=== PATIENT | male | born 1985 | race African-American/Black ===

== ENCOUNTER 2020-04-16 11:36 | Inpatient (IN) | payer MEDICAID ==
[~2020-04-16] VITALS: Ht 182.9 cm; Wt 78.5 kg
--- NOTE | 2020-04-16 11:50 | NUR ---
ED Nurse Note: Pt ambulated to ed c/o blood in stool with diarrheaa. per triage nurse pt has fever of 100.6; rechecked oral temp at bedside 98.8.
[2020-04-16] MEDS ORDERED: Acetaminophen 500mg (ES) tab ORAL ONE (12:00)
[2020-04-16 12:08] VITALS: BP 127/98
--- NOTE | 2020-04-16 12:19 | NUR ---
ED Nurse Note: xray at bedside
--- NOTE | 2020-04-16 12:31 | NUR ---
ED Nurse Note: xray completed.
[2020-04-16 12:43] LABS: BASOPHILS % (AUTO) 1.9 % (0.0-2.0); EOSINOPHILS % (AUTO) 2.6 % (0.0-3.0); HEMATOCRIT 30.7 % (42.0-52.0); LYMPHOCYTES % (AUTO) 26.4 % (20.0-45.0); MEAN CORPUSCULAR VOLUME 80 FL (80-99); MONOCYTES % (AUTO) 5.6 % (1.0-10.0); NEUTROPHILS % (AUTO) 63.5 % (45.0-75.0); PLATELET COUNT 252 K/UL (150-450); RED BLOOD COUNT 3.81 M/UL (4.70-6.10); RED CELL DISTRIBUTION WIDTH 12.7 % (11.6-14.8); WHITE BLOOD COUNT 6.5 K/UL (4.8-10.8)
[2020-04-16 12:59] LABS: ANION GAP 3 mmol/L (5-15); BLOOD UREA NITROGEN 6 mg/dL (7-18); CALCIUM 8.2 MG/DL (8.5-10.1); CARBON DIOXIDE 31 MMOL/L (21-32); CHLORIDE 100 MMOL/L (98-107); CREATININE 1.2 MG/DL (0.55-1.30); POTASSIUM 3.8 MMOL/L (3.5-5.1); SODIUM 133 MMOL/L (136-145)
[2020-04-16 13:12] LABS: ALBUMIN 2.3 G/DL (3.4-5.0); ALBUMIN/GLOBULIN RATIO 0.3 (1.0-2.7); ALKALINE PHOSPHATASE 84 U/L (46-116); ASPARTATE AMINO TRANSFERASE 20 U/L (15-37); BILIRUBIN,TOTAL 0.2 MG/DL (0.2-1.0); CKMB < 0.5 NG/ML (0.0-3.6); CREATINE KINASE 85 U/L (26-308); PHOSPHORUS 5.4 MG/DL (2.5-4.9)
--- NOTE | 2020-04-16 13:27 | Emergency Room Report ---
History of Present Illness General Chief Complaint: Fever Source: Patient Present Illness HPI 35-year-old male with a history of HIV noncompliant with medications here with fever and diarrhea and general malaise. Patient says that he is HIV positive but has not taken any antiretrovirals in over a year. Says he does not recall the last time he had a CD4 count or his viral loads checked. Says he has been having bloody diarrhea over the past several days to weeks. Has felt very lightheaded and has had multiple episodes of presyncope. Denies chills, chest pain, palpitation, cough, shortness of breath, back pain, abdominal pain, nausea, vomiting, dysuria, penile discharge. 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 COVID-19 Screening: Negative COVID-19 COVID-19 Testing Source: nasal Nursing Documentation-[facility] Past Medical History: No History, Except For Review of Systems All Other Systems: negative except mentioned in HPI Physical Exam Vital Signs Date Time Temp Pulse Resp B/P (MAP) Pulse Ox O2 Delivery O2 Flow Rate FiO2 04/16/20 11:40 100.8 133 20 158/101 (120) 95 Room Air Sp02 EP Interpretation: reviewed, normal General Appearance: no apparent distress, alert, GCS 15, non-toxic, other - Appears chronically ill, disheveled Head: normocephalic, atraumatic Eyes: bilateral eye normal inspection, bilateral eye PERRL ENT: hearing grossly normal, normal pharynx, no angioedema, normal voice Neck: full range of motion, supple/symm/no masses Respiratory: chest non-tender, lungs clear, normal breath sounds, speaking full sentences Cardiovascular #1: regular rate, rhythm, no edema Cardiovascular #2: 2+ carotid (R), 2+ carotid (L), 2+ radial (R), 2+ radial (L), 2+ dorsalis pedis (R), 2+ dorsalis pedis (L) Gastrointestinal: normal bowel sounds, non tender, soft, non-distended, no guarding, no rebound Rectal: deferred Genitourinary: normal inspection, no CVA tenderness Musculoskeletal: back normal, normal range of motion, gait/station normal, non- tender Neurologic: alert, motor strength/tone normal, oriented x3, sensory intact, responsive, speech normal Psychiatric: judgement/insight normal, memory normal, mood/affect normal, no suicidal/homicidal ideation Lymphatic: no adenopathy Medical Decision Making Diagnostic Impression: Primary Impression: Fever of unknown origin Additional Impressions: HIV (human immunodeficiency virus infection) Noncompliance with medications Diarrhea Abdominal pain Sepsis ER Course Total critical care time: Approximately 45 minutes Due to a high probability of clinically significant, life threatening deterioration, the patient required the highest level of preparedness to intervene emergently and I personally spent this critical care time directly and personally managing the patient. This critical care time included obtaining a history, examining the patient, pulse oximetry, ordering and reviewing studies, ordering treatments, evaluating response to treatment and updating management plan as needed, frequent reassessment and discussion with other providers as well as arranging for ultimate disposition. This critical to care time was performed to assess and manage the high probability of life-threatening deterioration that could result in multiorgan failure. This critical care time is separate from the separately billable procedures and treating other patients. EKG: NSR, no ischemia, intervals WNL. No ectopy Rhythm strip: patient monitored for arrhythmias - no malignant dysrhythmias, runs of PVCs, nor pauses noted 35-year-old male with history of HIV noncompliant with medications and unknown CD4 count or viral load count here with several days of diarrhea and abdominal pain. Patient said that he had several bloody bowel movements over the past several days. On arrival to the emergency department the patient had a fever of 100.4 F and was tachycardic at 120 bpm. He was given Tylenol and 30 cc/kg fluid bolus with good resolution of his abnormal vital signs. Patient had mild pancytopenia on CBC. CMP largely unremarkable. Lactic acid normal. The patient was given a dose of Zosyn in the emergency department for suspected intra-abdominal infection. C. difficile toxin screen will be sent upon patient providing stool sample. Patient will undergo CT abdomen pelvis and chest x-ray, both of which are currently pending. Patient was signed out to the oncoming physician. He will likely be admitted to telemetry upon completion of the studies. Last Vital Signs Date Time Temp Pulse Resp B/P (MAP) Pulse Ox O2 Delivery O2 Flow Rate FiO2 04/16/20 12:08 113 19 Room Air 04/16/20 12:08 100.8 127/98 98 Referrals: NOT CHOSEN IPA/,REFERRING (PCP) Robert eKn M.D. Apr 16, 2020 13:27
[2020-04-16 13:38] LABS: ALANINE AMINOTRANSFERASE 11 U/L (12-78)
[2020-04-16] MEDS ORDERED: Piperacillin/Tazobactam 3.375 GM in NS 110 ML IVPB ONE (14:00)
[2020-04-16 14:15] VITALS: BP 151/83
[2020-04-16] MEDS ORDERED: Omnipaque-300 100ml vial INJ PRN (14:15)
--- NOTE | 2020-04-16 14:42 | NUR ---
ED Nurse Note: Pt taken to CT
--- NOTE | 2020-04-16 15:16 | NUR ---
ED Nurse Note: Pt returned from CT
[2020-04-16 16:15] VITALS: BP 170/111
--- NOTE | 2020-04-16 16:42 | NUR ---
ED Nurse Note: telephone report given to ольга padilla
--- NOTE | 2020-04-16 16:44 | Diagnostic Imaging Report ---
Clinical Indication: Abdominal pain, blood in stool for 7 days Technique: No oral contrast utilized, per emergency room physician request IV administration nonionic contrast. Venous phase spiral acquisition obtained through the abdomen and pelvis. Multiplanar reconstructions were generated. Total dose length product . 71 mGycm. CTDIvol(s) 5 mGy. Dose reduction achieved using automated exposure control Comparison: none Findings: The lack of enteric contrast limits assessment of the GI tract. There is questionably mild wall thickening of the distal transverse and proximal descending colon, although this could be artifact of lack of distention. The appendix is only equivocally visualized; no definite findings to suggest acute appendicitis are demonstrated, however. No small bowel distention. No free or loculated intraperitoneal gas or fluid. There is an eggshell calcification in the right lower quadrant mesentery. The distal esophagus, stomach, duodenum are unremarkable. The liver demonstrates a subcentimeter low-attenuation lesion in segment 7 which is too small to characterize. Another is seen in segment 2 and a third lesion in segment 7 near the dome. The gallbladder is nondistended, no definite stones. No biliary ductal dilatation. The pancreas, spleen adrenals, right kidney are unremarkable. The left kidney demonstrates a 6 mm low-attenuation lesion which is too small to characterize. No retroperitoneal or mesenteric mass or adenopathy. No pelvic mass or adenopathy. The included lung bases demonstrate consolidative opacities within the right middle lobe and left lower lobe. Groundglass opacity in the right costophrenic sulcus could represent infiltrate, versus dependent atelectatic changes. Impression: Limited assessment of the GI tract, due to lack of enteric contrast administration Mild apparent wall thickening of the distal transverse and proximal descending colon, may be artifact of lack of distention versus but if real could indicate wall thickening secondary to colitis Bilateral basilar pulmonary parenchymal infiltrates, likely pneumonia Right lower quadrant eggshell calcification, probably postinflammatory Incidental findings as noted, including probable hepatic and renal cysts The CT scanner at [facility] is accredited by the [employer] and the scans are performed using protocols designed to limit radiation exposure to as low as reasonably achievable to attain images of sufficient resolution adequate for diagnostic evaluation.
[2020-04-16 17:08] LABS: APPEARANCE,URINE CLEAR; BILIRUBIN, URINE NEGATIVE (NEGATIVE); GLUCOSE, URINE (UA) NEGATIVE (NEGATIVE); KETONES,URINE NEGATIVE (NEGATIVE); LEUKOCYTE ESTERASE ,URINE NEGATIVE (NEGATIVE); NITRITE,URINE NEGATIVE (NEGATIVE); PH,URINE 6 (4.5-8.0); PROTEIN,URINE 2+ (NEGATIVE); UROBILINOGEN,URINE NORMAL MG/DL (0.0-1.0)
[2020-04-16 17:10] LABS: COLOR,URINE YELLOW
--- NOTE | 2020-04-16 17:15 | NUR ---
TRANSFER TO FLOOR: Patient transferred to tele as ordered, per ermd. Report given to ольга Bautista. Belongings given to pt.
[2020-04-16 17:30] VITALS: BP 152/97
--- NOTE | 2020-04-16 18:50 | NUR ---
NURSE NOTES: PT ADMitted to unit in stable condition, no complains of pain. pt claims he had 2 weeks worth of bloody stools, non happened during my shift. Pt vital signs stable, in room air. Bed in lowest position, call light within reach. teletypesetter monitor placed on pt when he came to unit, no signs of cardiac or respiratory distress at this time. pt boyfriend will be bringing his HIV meds tonight. doctor link is aware.
--- NOTE | 2020-04-16 19:15 | Diagnostic Imaging Report ---
Indication: Reason For Exam: COUGH Technique: One view of the chest Comparison: none Findings: Lungs and pleural spaces are clear. Heart size is upper limits normal. Impression: No acute process
--- NOTE | 2020-04-16 19:37 | NUR ---
NURSE HAND-OFF REPORT: Important Events on Shift:still waiting for HIV meds boyfriend will bring them Patient Status: full Diet: regular Pending Orders: stool sample pending Pending Results/Labs: Pending MD notification: Latest Vital Signs: Temperature 98.8 , Pulse 81 , B/P 152 /97 , Respiratory Rate 20 , O2 SAT 98 , Room Air, O2 Flow Rate . Vital Sign Comment: EKG Rhythm: Sinus Rhythm Rhythm change?: MD Notified?: - MD Response: Latest [place] Fall Score: 35 Fall Risk: Medium Risk Safety Measures: Call light Within Reach, Bed Alarm Zone 2, Side Rails Side Rails x2, Bed position Low and Locked. Fall Precautions: Yellow Socks y Yellow Gown y Patient Fall Education y Report given to Jim/RN .
--- NOTE | 2020-04-16 19:46 | NUR ---
NURSE NOTES: Report received from Lily LANGFORD. Patient is noted to be awake and alert x 4. Patient is noted to be on room air with no complaints of chest pain or shortness of breath at this time. Was endorsed that patient is HIV positive and that family member will be bringing in medication from home. Was endorsed that patient was febrile upon admission, but is noted to currently be afebrile. It is noted that a stool culture is needed to be obtained. Elijah LANGFORD placed collection hat in toilet and made patient aware. Patient verbalized understanding. Patient is noted to have left AC 18 ramirez IV access. Patient has no other complaints at this time, patient currently eating dinner. Bed is locked and in lowest position. Call light in reach. Will continue to follow plan of care.
[2020-04-16 20:00] VITALS: BP 141/97
[2020-04-16] MEDS ORDERED: cefTRIAXone 1 GM in D5W 55 ML IVPB SCH (20:00)
--- NOTE | 2020-04-16 22:06 | NUR ---
NURSE NOTES: Doctor Muller paged regarding rhythm strip showing SR w/ 1st degree HB. No previous rhythm strip to compare to. Admission EKG shows SR. Patient is awake and alert x 4 and asymptomatic. Doctor Muller aware, informed Elijah LANGFORD to inform Doctor Rudd. Elijah LANGFORD paged Doctor Rudd, no answer, awaiting call back.
[2020-04-16] MEDS: metroNIDAZOLE 500mg tab ORAL SCH (22:10)
--- NOTE | 2020-04-16 22:23 | NUR ---
NURSE NOTES: Doctor Tobin is aware of 1st degree HB. No new orders given.
[2020-04-17] VITALS: BP 138/89
[2020-04-17 04:00] VITALS: BP 149/96
--- NOTE | 2020-04-17 06:14 | NUR ---
NURSE NOTES: Note that a wrong order set was placed for this patient. [employer] called. All error orders canceled.
[2020-04-17] MEDS ORDERED: NovoLOG Insulin Flexpen SUBQ SCH (06:30)
[2020-04-17] MEDS: metroNIDAZOLE 500mg tab ORAL SCH ×2 (06:51→14:37)
--- NOTE | 2020-04-17 07:30 | NUR ---
NURSE HAND-OFF REPORT: Important Events on Shift: patient slept throughout shift. Began antibiotics. Stool sample obtained. Patient Status: full code Diet: regular Pending Orders: none Pending Results/Labs:stool culture results Pending MD notification:none Latest Vital Signs: Temperature 98.0 , Pulse 94 , B/P 149 /96 , Respiratory Rate 20 , O2 SAT 96 , Room Air, O2 Flow Rate . Vital Sign Comment: within normal limits. EKG Rhythm: SR, w/ 1st degree HB Rhythm change?: N Notified?: Gt Johnson MD Response: no new orders. Latest [place]ama Fall Score: 35 Fall Risk: Medium Risk Safety Measures: Call light Within Reach, Bed Alarm Zone 2, Side Rails Side Rails x2, Bed position Low and Locked. Fall Precautions: Yellow Socks Yellow Gown Patient Fall Education Report given to Lily LANGFORD.
[2020-04-17 07:35] LABS: BASOPHILS % (AUTO) 1.2 % (0.0-2.0); EOSINOPHILS % (AUTO) 2.3 % (0.0-3.0); HEMATOCRIT 31.1 % (42.0-52.0); HEMOGLOBIN 9.8 G/DL (14.2-18.0); LYMPHOCYTES % (AUTO) 18.4 % (20.0-45.0); MEAN CORPUSCULAR VOLUME 81 FL (80-99); MONOCYTES % (AUTO) 6.5 % (1.0-10.0); NEUTROPHILS % (AUTO) 71.7 % (45.0-75.0); PLATELET COUNT 245 K/UL (150-450); RED BLOOD COUNT 3.84 M/UL (4.70-6.10); RED CELL DISTRIBUTION WIDTH 12.7 % (11.6-14.8); WHITE BLOOD COUNT 6.2 K/UL (4.8-10.8)
[2020-04-17 07:51] LABS: ALANINE AMINOTRANSFERASE 10 U/L (12-78); ALBUMIN 2.2 G/DL (3.4-5.0); ALBUMIN/GLOBULIN RATIO 0.3 (1.0-2.7); ALKALINE PHOSPHATASE 82 U/L (46-116); ANION GAP 4 mmol/L (5-15); ASPARTATE AMINO TRANSFERASE 21 U/L (15-37); BILIRUBIN,TOTAL 0.2 MG/DL (0.2-1.0); BLOOD UREA NITROGEN 5 mg/dL (7-18); CALCIUM 8.3 MG/DL (8.5-10.1); CARBON DIOXIDE 29 MMOL/L (21-32); CHLORIDE 101 MMOL/L (98-107); POTASSIUM 4.1 MMOL/L (3.5-5.1); SODIUM 134 MMOL/L (136-145)
[2020-04-17 08:00] VITALS: BP 155/97
--- NOTE | 2020-04-17 08:22 | Cardiology Progress Note ---
Assessment/Plan Assessment/Plan The patient is seen and examined, full consult note is dictated. Objective Last 24 Hour Vital Signs Date Time Temp Pulse Resp B/P (MAP) Pulse Ox O2 Delivery O2 Flow Rate FiO2 04/17/20 04:00 98.0 98 20 149/96 (113) 96 04/17/20 04:00 94 04/17/20 00:00 98.1 82 20 138/89 (105) 98 04/17/20 00:00 97 04/16/20 21:00 Room Air 04/16/20 20:00 79 04/16/20 20:00 98.4 83 20 141/97 (112) 99 04/16/20 18:21 Room Air 04/16/20 17:30 98.8 81 20 152/97 (115) 98 04/16/20 17:21 98.4 81 17 163/100 100 Room Air 04/16/20 16:15 98.7 86 16 170/111 99 Room Air 04/16/20 14:15 98.8 84 15 151/83 94 Room Air 04/16/20 12:08 113 19 Room Air 04/16/20 12:08 100.8 113 19 127/98 98 Room Air 04/16/20 11:40 100.8 133 20 158/101 (120) 95 Room Air Intake and Output 04/16/20 04/17/20 19:00 07:00 Intake Total 415 ml Output Total 0 ml Balance 0 ml 415 ml Intake Oral 360 ml IV Total 55 ml Output Urine Total 0 ml # Voids 2 # Bowel Movements 3 Laboratory Tests Test 04/16/20 11:57 04/16/20 16:38 04/17/20 06:30 White Blood Count 6.5 K/UL (4.8-10.8) Pending Red Blood Count 3.81 M/UL (4.70-6.10) L 3.84 M/UL (4.70-6.10) L Hemoglobin 10.0 G/DL (14.2-18.0) L 9.8 G/DL (14.2-18.0) L Hematocrit 30.7 % (42.0-52.0) L 31.1 % (42.0-52.0) L Mean Corpuscular Volume 80 FL (80-99) 81 FL (80-99) Mean Corpuscular Hemoglobin 26.1 PG (27.0-31.0) L 25.4 PG (27.0-31.0) L Mean Corpuscular Hemoglobin Concent 32.5 G/DL (32.0-36.0) 31.4 G/DL (32.0-36.0) L Red Cell Distribution Width 12.7 % (11.6-14.8) 12.7 % (11.6-14.8) Platelet Count 252 K/UL (150-450) 245 K/UL (150-450) Mean Platelet Volume 6.6 FL (6.5-10.1) 6.7 FL (6.5-10.1) Neutrophils (%) (Auto) 63.5 % (45.0-75.0) 71.7 % (45.0-75.0) Lymphocytes (%) (Auto) 26.4 % (20.0-45.0) 18.4 % (20.0-45.0) L Monocytes (%) (Auto) 5.6 % (1.0-10.0) 6.5 % (1.0-10.0) Eosinophils (%) (Auto) 2.6 % (0.0-3.0) 2.3 % (0.0-3.0) Basophils (%) (Auto) 1.9 % (0.0-2.0) 1.2 % (0.0-2.0) Prothrombin Time 11.4 SEC (9.30-11.50) Prothromb Time International Ratio 1.0 (0.9-1.1) Sodium Level 133 MMOL/L (136-145) L 134 MMOL/L (136-145) L Potassium Level 3.8 MMOL/L (3.5-5.1) 4.1 MMOL/L (3.5-5.1) Chloride Level 100 MMOL/L (98-107) 101 MMOL/L (98-107) Carbon Dioxide Level 31 MMOL/L (21-32) 29 MMOL/L (21-32) Anion Gap 3 mmol/L (5-15) L 4 mmol/L (5-15) L Blood Urea Nitrogen 6 mg/dL (7-18) L 5 mg/dL (7-18) L Creatinine 1.2 MG/DL (0.55-1.30) 1.0 MG/DL (0.55-1.30) Estimat Glomerular Filtration Rate > 60 mL/min (>60) > 60 mL/min (>60) Glucose Level 90 MG/DL (74-106) 78 MG/DL (74-106) Lactic Acid Level 0.90 mmol/L (0.4-2.0) Calcium Level 8.2 MG/DL (8.5-10.1) L 8.3 MG/DL (8.5-10.1) L Phosphorus Level 5.4 MG/DL (2.5-4.9) H Magnesium Level 1.8 MG/DL (1.8-2.4) Total Bilirubin 0.2 MG/DL (0.2-1.0) 0.2 MG/DL (0.2-1.0) Aspartate Amino Transf (AST/SGOT) 20 U/L (15-37) 21 U/L (15-37) Alanine Aminotransferase (ALT/SGPT) 11 U/L (12-78) L 10 U/L (12-78) L Alkaline Phosphatase 84 U/L (46-116) 82 U/L (46-116) Total Creatine Kinase 85 U/L (26-308) Creatine Kinase MB < 0.5 NG/ML (0.0-3.6) Creatine Kinase MB Relative Index 0.5 Troponin I 0.015 ng/mL (0.000-0.056) Total Protein 9.3 G/DL (6.4-8.2) H 10.0 G/DL (6.4-8.2) H Albumin 2.3 G/DL (3.4-5.0) L 2.2 G/DL (3.4-5.0) L Globulin 7.0 g/dL 7.8 g/dL Albumin/Globulin Ratio 0.3 (1.0-2.7) L 0.3 (1.0-2.7) L Urine Color Yellow Urine Appearance Clear Urine pH 6 (4.5-8.0) Urine Specific [place] 1.020 (1.005-1.035) Urine Protein 2+ (NEGATIVE) H Urine Glucose (UA) Negative (NEGATIVE) Urine Ketones Negative (NEGATIVE) Urine Blood 2+ (NEGATIVE) H Urine Nitrite Negative (NEGATIVE) Urine Bilirubin Negative (NEGATIVE) Urine Urobilinogen Normal MG/DL (0.0-1.0) Urine Leukocyte Esterase Negative (NEGATIVE) Urine RBC 5-10 /HPF (0 - 0) H Urine WBC 0-2 /HPF (0 - 0) Urine Squamous Epithelial Cells Occasional /LPF Urine Bacteria Occasional /HPF (NONE) Lymphocytes Pending Percent CD3 Cells Pending Absolute CD3 Count Pending Percent CD4 Cells Pending Absolute CD4 Count Pending T-Lymphocyte CD4/CD8 Ratio Pending Percent CD8 Cells Pending Absolute CD8 Count Pending Microbiology Date/Time Source Procedure Growth Status 04/16/20 11:57 Nasopharynx SARS-CoV-2 RdRp Gene Assay - Final Complete Joselo Rudd MD Apr 17, 2020 08:22
--- NOTE | 2020-04-17 08:39 | NUR ---
NURSE NOTES: pt in bed having breakfast. AOx4 . pt on ekg monitor tech does not have any chest pain or respiratory distress at this time. Bed locked and in lowest position, call light within reach. Will continue to monitor pt.
[2020-04-17] MEDS: dilTIAZem HCl 30mg tab ORAL SCH ×2 (09:52→14:42)
--- NOTE | 2020-04-17 10:51 | NUR ---
CASE MANAGEMENT:REVIEW 35 [address]RE[address] TO ER CC: BLOOD IN STOOL. NOSE ABSCESS. DIARRHEA PMH: HIV SI: SEPSIS 100.7 133 20 158/101 94% ON RA NA-133 IS: 2L NS BOLUS IV ZOSYN TYLENOL PO CHEST XRAY C-DIFF : TO TELEMETRY
--- NOTE | 2020-04-17 11:00 | Consultation ---
DATE OF CONSULTATION: 04/17/2020 CARDIOLOGY CONSULTATION CONSULTING PHYSICIAN: Joselo Rudd MD. REFERRING PHYSICIAN: Hermelindo Muller MD. REASON FOR CONSULTATION: Management of tachycardia. HISTORY OF PRESENT ILLNESS: The patient is a very unfortunate 35-year-old gentleman with a history of HIV disease, noncompliant with medication, who presented to the hospital with fever, diarrhea, and general malaise. Apparently, the patient has not taken his antiviral medication for just about a year and his CD4 count has not been checked either. The patient has been having bloody diarrhea in the past few days to week complaining of lightheadedness and has had multiple near faint events. At the time of arrival to this hospital, he denied any chest pain or shortness of breath. Vital signs revealed blood pressure 158/101 mmHg and temperature of 100.8 degrees Fahrenheit. His heart rate was 133. He was admitted to telemetry for further evaluation and management of GI symptoms. Cardiology consultation was made for hemodynamic management including treatment of tachycardia and hypertension crisis. PAST MEDICAL HISTORY: HIV disease. ALLERGIES: No known drug allergies. SURGICAL HISTORY: None. FAMILY HISTORY: No premature coronary artery disease in first-degree relatives. REVIEW OF SYSTEMS: A 12-system review done essentially negative except what was mentioned in the history of present illness. LIST OF MEDICATION: The patient does not take any medication currently. PHYSICAL EXAMINATION: VITAL SIGNS: Blood pressure was 158/101, pulse of 133, respirations of 20, temperature 100.8 degrees Fahrenheit, O2 saturation 95% on room air. GENERAL: The patient is a very unfortunate 35-year-old gentleman, chronically ill, disheveled. HEENT: Atraumatic and normocephalic. Anicteric. Pupils are equal, round, and reactive to light and accommodation. Extraocular muscles are intact. NECK: JVP less than 5 cm. No carotid bruit. Carotid upstroke is 2+ bilaterally. CARDIOVASCULAR: Normal S1, S2. Regular rate and rhythm. Tachycardic. No murmurs, gallops, or rubs. PMI is at fourth intercostal space and midclavicular line. LUNGS: Clear to auscultation bilaterally. ABDOMEN: Soft, nontender, nondistended. No hepatosplenomegaly. Positive bowel sounds. EXTREMITIES: No evidence of edema, clubbing, or cyanosis. DIAGNOSTIC DATA: Chest x-ray in the emergency department showed no acute cardiopulmonary disease. A 12-lead electrocardiogram showed sinus tachycardia, rate of 97 with LVH pattern and lateral wall T-wave inversions suggestive of repolarization abnormality versus ischemia. LABORATORY FINDINGS: WBC 6.5, hemoglobin 10.0, hematocrit 30.7, platelet count is 252. Sodium was 133, potassium 3.8, BUN 6, creatinine 1.2, chloride 100, bicarbonate 31, glucose 90, calcium is 8.2. Troponin I level is 0.015. INR was 1.0. ASSESSMENT/PLAN: The patient is a very unfortunate 35-year-old gentleman, who was seen in Cardiology consultation. 1. Sinus tachycardia in this patient is most likely due to underlying sepsis/infection, possibly gastroenteritis. Infectious Disease consultation. IV antibiotics and aggressive hydration with normal saline at 100 mL per hour. We will check brain natriuretic peptide in this patient. Chest x-ray does not show any acute cardiopulmonary disease. We will obtain 2D echocardiography for assessment of LV systolic function, also diastolic data for management of hemodynamics. 2. HIV disease, noncompliant with medications. I would like to thank Dr. Muller for allowing me to participate in the care of this patient. Joselo Rudd M.D. DR: CRIS JOB#: [id number] CC:
[2020-04-17 12:00] VITALS: BP 165/100
--- NOTE | 2020-04-17 15:24 | NUR ---
ELECTRONIC BENCH TECHNICIAN NOTE Pt presents as A&O 4x. Pt has been homeless for two years. Pt is single, never and has no children. Pt receives GR and food stamp. PT reports he does have some income available for this month. Emergency contact provided as his brother, Abhay Lyles [phone]. Pt reports using THC and smoking cigarette. PT denies ETOH/other substance abuse. PT declined counseling/tx intervention on substance abuse. SW offered a placement assistance but pt refused. Pt plans to go to his friend's house upon DC. Pt SW encouraged pt to reconsider placement assistance but pt declined. Pt did not provide the exact address/location he will be going. Pt reports he will arrange his own once he is discharged. SW explained negative ramification of unlicensed facilities. SW encouraged pt to verbalize his needs/concerns or any dialysis social worker assistance while IP. Pt verbalized understanding. Pt reports having appropriate clothing. KELLY provided the community resource packet. Addendum: 04/17/20 at 1537 by JAMMIE MENDOZA PT denies having mental illness.
[2020-04-17 16:00] VITALS: BP 149/99
--- NOTE | 2020-04-17 16:19 | Cardiology Report ---
APPROVED REPORT EXAM: Two-dimensional and M-mode echocardiogram with Doppler and color Doppler. INDICATION Congestive Heart Failure M-Mode DIMENSIONS IVSd1.8 (0.7-1.1cm)Left Atrium (MM)3.8 (1.6-4.0cm) LVDd4.7 (3.5-5.6cm)Aortic Root3.7 (2.0-3.7cm) PWd1.9 (0.7-1.1cm)Aortic Cusp Exc.2.5 (1.5-2.0cm) IVSs2.1 cmEPSS0.6 (>1.0cm) LVDs3.1 (2.5-4.0cm) PWs2.7 cm <Conclusion> Normal left ventricular chamber size, systolic function and wall motion. Left ventricular ejection fraction estimated to be 65-70%. Moderate to severe concentric left ventricular hypertrophy. No evidence of pericardial effusion. Mild left atrial enlargement. Right ventricular chamber size is within normal limits. Mild right atrial enlargement. Focal aortic valve sclerosis with adequate cusp excursion. Thickened mitral valve leaflets with normal excursion. Mitral annulus and aortic root calcification. Normal pulmonic valve structure. Normal tricuspid valve structure. IVC at normal size and collapsing with respiration. A color flow and spectral Doppler study was performed and revealed: No aortic regurgitation. Mitral diastolic velocities suggest normal left ventricular diastolic function. Mild mitral regurgitation. Mild tricuspid regurgitation. Tricuspid systolic velocities suggests peak right ventricular systolic pressure of 38 mmHg, consistent with mild pulmonary hypertension. Moderate pulmonic regurgitation present.
--- NOTE | 2020-04-17 16:24 | Cardiology Report ---
APPROVED REPORT EKG Measurement Heart [id number] <Conclusion> Normal sinus rhythm Minimal voltage criteria for LVH, may be normal variant T wave abnormality, consider lateral ischemia Abnormal ECG
--- NOTE | 2020-04-17 16:30 | NUR ---
NURSE NOTES: pt. took off night monitor and started crying "I can't be here anymore, I have things I need to take care off" "my friend can't not even bring my medication to the hospital" "he does not care about me". I told the patient if there was anything we could do for him, he said no!! we have been wonderful. He just has personal problems to take care off. I told him if he needed to come back because he is not feeling well, he may. Notified doctor Renzo about incident, he is aware pt left AMA. Pt signed AMA form. IV was taken off. vehicle monitor technician was off too. Pt took all personal belonging including cell ph. with him.
--- NOTE | 2020-04-17 17:30 | Consultation ---
DATE OF CONSULTATION: 04/17/2020 INFECTIOUS DISEASES CONSULTATION CONSULTING PHYSICIAN: Juan Antonio Bradley MD PRIMARY ATTENDING PHYSICIAN: Hermelindo Muller MD REASON FOR CONSULTATION: HIV, sepsis, pneumonia, colitis. HISTORY OF PRESENT ILLNESS: The patient is a 35-year-old male admitted yesterday. He is homeless, complaining of fever, diarrhea, malaise, lightheadedness, and presyncope. PAST MEDICAL HISTORY: HIV diagnosed 3 years ago, did not take any medications. ALLERGIES: No known drug allergies. MEDICATIONS: Flagyl, ceftriaxone, Tylenol, diltiazem, got a dose of Zosyn in the ER. SOCIAL HISTORY: , homeless. Denies alcohol, drug abuse, or smoking. REVIEW OF SYSTEMS: He has had fever for a couple of weeks, weakness, some erythema at the tip of nose, has occasional cough, diarrhea at the time of admission but denies diarrhea right now, has no problem passing urine. PHYSICAL EXAMINATION: VITAL SIGNS: Temperature 100.4, maximum temperature was 100.8, pulse at the time of admission was 133 and currently is 94, blood pressure 154/97. GENERAL APPEARANCE: Seems to have normal weight. HEAD AND NECK: Ill-defined erythema at the tip of nose. Poor dentition and decay tooth. Has angular cheilitis. HEART: Normal rate. LUNGS: Clear. ABDOMEN: Soft and nontender. EXTREMITIES: No edema. NEUROLOGIC: Awake, alert, oriented x3. LABORATORY AND DIAGNOSTIC DATA: Sodium 134, potassium 4.1, chloride 101, bicarbonate 29, BUN 5, creatinine 1, glucose 60. Total protein is 10. Albumin is 2.2. UA showed rbc's of 5 to 10. C. difficile test was negative. COVID test was negative. Chest x-ray was negative but CT scan of the abdomen and pelvis showed mild thickening of distal transverse and proximal descending colon, may be secondary to colitis, bilateral basilar pulmonary parenchymal infiltrate likely pneumonia, probable hepatic and renal cyst. IMPRESSION: 1. Sepsis with fever and tachycardia. 2. HIV, noncompliant with medication, likely AIDS. 3. Colitis. 4. Pneumonia. 5. Nicotine dependence. RECOMMENDATIONS: Continue with ceftriaxone and Flagyl for now. We will follow CD4 count. We will follow HIV viral load. We will follow sputum for Pneumocystis. We will check urine toxicology. The patient is willing to take HIV treatment. We will consider starting HIV mediation soon. At the end of my exam, I thank Dr. Muller, for involving me in the care of this patient. Juan Antonio Bradley M.D. DR: Dhaval JOB#: [id number] CC: KALYAN
--- NOTE | 2020-04-18 00:15 | History and Physical Report ---
DATE OF ADMISSION: 04/16/2020 HISTORY OF PRESENT ILLNESS: Patient says that he is only here because pus was coming out of nose. Denies fever or chills. Denies shortness of breath. Denies cough. Denies headache. Denies change in speech pattern. Also complained in the blood for 1 week. Patient came with sepsis. Has apparently HIV, noncompliant with medications. Also came with abdominal pain and diarrhea for few days as well as fever and tachycardia. COVID-19 negative and chest x-ray was normal according to ER doctor. Antibiotic was given. PAST MEDICAL HISTORY: HIV. PAST SURGICAL HISTORY: None. FAMILY HISTORY: Noncontributory. SOCIAL HISTORY: He has history of smoking, history of drug abuse, and history of alcohol abuse. MEDICATIONS: None. REVIEW OF SYSTEMS: HEENT: Denies headaches. RESPIRATORY: Denies shortness of breath. Denies cough. He states pus coming out of nose. GASTROINTESTINAL: He reports stool for 1 week. Denies abdominal pain. EXTREMITIES: Denies pain in lower extremities. CENTRAL NERVOUS SYSTEM: Denies change in speech pattern. PHYSICAL EXAMINATION: VITAL SIGNS: Temperature 97.2, pulse 78, blood pressure 132/70. HEENT: PERRLA. NECK: Supple. No lymphadenopathy. CHEST: Clear to auscultation. CARDIOVASCULAR: Regular rate and rhythm. No murmurs or extra sounds. GASTROINTESTINAL: Soft, nontender, nondistended. No organomegaly. EXTREMITIES: No edema. Moves all four extremities. Sensory intact to light touch. Reflexes equal on both sides. LABORATORY DATA: Essentially normal. Patient had a fever of 101 and blood pressure was normal. Heart rate was 120. ASSESSMENT AND PLAN: GI bleed, tachycardia, fever, HIV. I have consulted Dr. Juan Antonio Bradley, Dr. Hare, and Dr. Rudd to help with the above-mentioned abnormalities and symptoms and abnormal findings. Antibiotics per Dr. Juan Antonio Bradley. Hermelindo Muller M.D. DR: DEVAN JOB#: [id number] CC:
--- NOTE | 2020-04-19 08:58 | Discharge Summary ---
Discharge Summary Discharge Summary _ DATE OF ADMISSION: 04/16/2020 DATE OF DISCHARGE: 04/17/2020 Patient left AGAINST MEDICAL ADVICE REASON FOR ADMISSION: 35 years old male with history of HIV, noncompliant with medications, presented with fever diarrhea and generalized malaise. Patient was not taking any antiretroviral medications for over a year. He could not remember checking last time his CD4 count or viral load. Patient reported bloody diarrhea for the past several days to weeks. He felt lightheaded and had multiple episodes of presyncope. He denied fever and chills. He denied chest pain or shortness of breath. No cough or wheezing. o back pain. No abdominal pain nausea or vomiting. No dysuria or penile discharge. Upon evaluation patient was febrile and tachycardic . Pulse oximetry was stable on room air. Rapid COVID-19 was negative. Laboratory work-up revealed no leukocytosis hemoglobin 10 hematocrit 30.7 platelet counts 252. Sodium 133, calcium 8.2 , phosphorus 5.4. BUN 6, creatinine 1.2. Glucose 90. Lactic acid 0.9 Troponin 0.015. Albumin 2.3. Urinalysis revealed no evidence of urinary tract infection, +2 protein . Chest x-ray demonstrated no acute cardiopulmonary pathology . CT of the abdomen and pelvis revealed mild apparent wall thickening of the distal transverse and proximal descending colon, may be artifact of lack of distention , but if real could indicate wall thickening secondary to colitis. Bilateral basilar pulmonary parenchymal infiltrates, likely pneumonia. In emergency department p septic work-up initiated . Patient started on IV hydration, received analgesic, antiemetic , pancultured, received empiric antibiotic and admitted for further management. CONSULTANTS: clockmaker Dr. Rudd ID specialist Dr. Juan Antonio Bradley [facility] COURSE: Patient admitted to telemetry floor. Patient was hydrated Antibiotic provided as per ID specialist recommendation. T subset cell panel revealed CD4 count of 111. Blood cultures were negative. Stool for C. difficile was negative. Patient noted to have sinus tachycardia, which was likely due to sepsis as per clockmaker. Patient was continued on aggressive IV hydration. Echocardiogram demonstrated preserved ejection fraction 65 to 70% , no evidence of wall motion abnormality. Right ventricular systolic pressure of 38 consistent with a mild pulmonary hypertension. Supportive care provided. Fever and tachycardia resolved the next day. Patient decided to leave AGAINST MEDICAL ADVICE. particleboard factory worker met with the patient for placement assistance, but patient refused. He stated that he was going to go to his friend's house upon discharge. particleboard factory worker encouraged patient to reconsider placement assistance, but patient declined. Later the same day patient decided to leave AGAINST MEDICAL ADVICE . The risks and consequences of signing AGAINST MEDICAL ADVICE were discussed with patient in detail. Patient verbalized understanding, nevertheless signed AMA form and left. FINAL DIAGNOSES: Sepsis HIV/AIDS, CD4 111 Noncompliance with antiretroviral therapy Colitis Pneumonia Nicotine dependency Sinus tachycardia , likely due to sepsis I have been assigned to dictate discharge summary for this account. I was not involved in the patient's management. Diane Tucker NP Apr 19, 2020 08:58
--- NOTE | 2020-04-19 16:37 | NUR ---
INSURANCE DC SUMMARY FAXED TO [facility] [phone]
== END 2020-04-17 16:30 | disposition left against medical advice (07) | DRG 892 ==
LOC: EMR 13:09 → 2E 14:03 → EDBEDREQ 16:22
DX: A41.9 Sepsis, unspecified organism (principal); B20 Human immunodeficiency virus [HIV] disease; J18.9 Pneumonia, unspecified organism; Z91.14 Patient's other noncompliance with medication regimen; F19.11 Other psychoactive substance abuse, in remission; K52.9 Noninfective gastroenteritis and colitis, unspecified; F17.200 Nicotine dependence, unspecified, uncomplicated; Z59.0 Homelessness; I27.20 Pulmonary hypertension, unspecified
CPT/HCPCS: 36415; 71045; 74177; 80053; 81003; 82550; 82553; 83605; 83735; 83880; 84100; 84484; 85025; 85610; 86360; 86850; 86900; 86901; 87040; 87045; 87324; 93005; 93306; 96361; 96365; 99291; J7030; U0002

== ENCOUNTER 2020-09-05 22:15 | Inpatient (IN) | payer MEDICAID ==
[~2020-09-05] VITALS: Ht 180.3 cm; Wt 79.4 kg
--- NOTE | 2020-09-05 22:35 | NUR ---
Pt walked into the ED from the streets with c/o diarrhea and blood in stool onset 1 month. Pt stated he had "crohns dse" and was admitted at [facility] a month ago. Pt diagnosed with HIV in 2014. EDP evaluated the patient new orders received and carried out. Will continue to monitor.
--- NOTE | 2020-09-05 22:59 | Emergency Room Report ---
History of Present Illness General Chief Complaint: Diarrhea Source: Patient Present Illness HPI Patient is a 35-year-old male past medical history of HIV who presents to the ER complaining of diarrhea for the past month. Patient complains of 5-6 episodes of loose stools with tinges of blood. He complains of lower abdominal pain and back pain. He states is like a cramping sensation. He states he went to [facility] for the same complaint but left because he did not like how the nurses treated him there. He denies any chest pain, shortness of breath or cough. He denies any fever or chills. He denies any IV drug use. He denies any focal weakness, rash or neck stiffness. Allergies: Coded Allergies: No Known Allergies (Unverified , 04/16/20) COVID-19 Screening Contact w/high risk pt: No Experienced COVID-19 symptoms?: No COVID-19 Testing performed WORD PROCESSOR: No COVID-19 Screening: Negative COVID-19 COVID-19 Testing Source: [facility] Patient History Reviewed Nursing Documentation: PMH: Agreed; PSxH: Agreed Nursing Documentation-PMH Hx Cardiac Problems: No - hiv 2014 Hx Asthma: Yes Hx Cancer: No Hx Gastrointestinal Problems: No Hx Neurological Problems: No Review of Systems All Other Systems: negative except mentioned in HPI Physical Exam Vital Signs Date Time Temp Pulse Resp B/P (MAP) Pulse Ox O2 Delivery O2 Flow Rate FiO2 09/05/20 22:25 98.8 87 20 151/98 (115) 98 Room Air Sp02 EP Interpretation: reviewed, normal General Appearance: no apparent distress, alert, GCS 15, non-toxic Head: normocephalic, atraumatic Eyes: bilateral eye normal inspection, bilateral eye PERRL ENT: dry mucus membranes Neck: full range of motion, supple/symm/no masses Respiratory: lungs clear, no respiratory distress Cardiovascular #1: regular rate, rhythm Gastrointestinal: soft, no guarding, no rebound, other - Mild lower abdominal tenderness Rectal: deferred Genitourinary: no CVA tenderness Musculoskeletal: normal range of motion Neurologic: assembler carbon brushes III-XII nml as tested, oriented x3 Psychiatric: no suicidal/homicidal ideation Skin: no rash Lymphatic: no adenopathy Medical Decision Making Diagnostic Impression: Primary Impression: Colitis Additional Impressions: Proctitis Hypokalemia Anemia ER Course Patient CT demonstrates colitis and proctitis. Patient is mildly hypokalemic with potassium of 3.3. 40 mEq of oral potassium chloride have been ordered. Patient is anemic but not currently requiring blood transfusion. Patient started on IV Cipro and Flagyl. Patient given IV fluids. Stool studies have been sent including ova and parasites, stool culture and C. difficile. Patient will be admitted for further treatment and evaluation. Laboratory Tests Test 09/05/20 22:57 White Blood Count 4.5 K/UL (4.8-10.8) L Red Blood Count 3.77 M/UL (4.70-6.10) L Hemoglobin 9.7 G/DL (14.2-18.0) L Hematocrit 30.9 % (42.0-52.0) L Mean Corpuscular Volume 82 FL (80-99) Mean Corpuscular Hemoglobin 25.8 PG (27.0-31.0) L Mean Corpuscular Hemoglobin Concent 31.5 G/DL (32.0-36.0) L Red Cell Distribution Width 15.4 % (11.6-14.8) H Platelet Count 230 K/UL (150-450) Mean Platelet Volume 6.6 FL (6.5-10.1) Neutrophils (%) (Auto) 66.6 % (45.0-75.0) Lymphocytes (%) (Auto) 24.0 % (20.0-45.0) Monocytes (%) (Auto) 6.3 % (1.0-10.0) Eosinophils (%) (Auto) 2.5 % (0.0-3.0) Basophils (%) (Auto) 0.6 % (0.0-2.0) Prothrombin Time 11.5 SEC (9.30-11.50) Prothrombin Time INR 1.0 (0.9-1.1) Activated Partial Thromboplast Time 33 SEC (23-33) Urine Color Pale yellow Urine Appearance Clear Urine pH 6 (4.5-8.0) Urine Specific Violet 1.015 (1.005-1.035) Urine Protein 2+ (NEGATIVE) H Urine Glucose (UA) Negative (NEGATIVE) Urine Ketones Negative (NEGATIVE) Urine Blood 2+ (NEGATIVE) H Urine Nitrite Negative (NEGATIVE) Urine Bilirubin Negative (NEGATIVE) Urine Urobilinogen Normal MG/DL (0.0-1.0) Urine Leukocyte Esterase Negative (NEGATIVE) Urine RBC 0-2 /HPF (0 - 0) H Urine WBC 0 /HPF (0 - 0) Urine Squamous Epithelial Cells None /LPF (NONE/OCC) Urine Bacteria None /HPF (NONE) Sodium Level 135 MMOL/L (136-145) L Potassium Level 3.3 MMOL/L (3.5-5.1) L Chloride Level 101 MMOL/L (98-107) Carbon Dioxide Level 30 MMOL/L (21-32) Anion Gap 5 mmol/L (5-15) Blood Urea Nitrogen 10 mg/dL (7-18) Creatinine 1.1 MG/DL (0.55-1.30) Estimated Glomerular Filtration Rate > 60 mL/min (>60) Glucose Level 96 MG/DL (74-106) Calcium Level 8.6 MG/DL (8.5-10.1) Magnesium Level 2.0 MG/DL (1.8-2.4) Total Bilirubin 0.2 MG/DL (0.2-1.0) Aspartate Amino Transferase (AST) 38 U/L (15-37) H Alanine Aminotransferase (ALT) 20 U/L (12-78) Alkaline Phosphatase 95 U/L (46-116) Total Protein 10.6 G/DL (6.4-8.2) H Albumin 2.2 G/DL (3.4-5.0) L Globulin 8.4 g/dL Albumin/Globulin Ratio 0.3 (1.0-2.7) L Lipase 182 U/L (73-393) Urine Opiates Screen Negative (NEGATIVE) Urine Barbiturates Screen Negative (NEGATIVE) Phencyclidine (PCP) Screen Positive (NEGATIVE) H Urine Amphetamines Screen Positive (NEGATIVE) H Urine Benzodiazepines Screen Negative (NEGATIVE) Urine Cocaine Screen Negative (NEGATIVE) Urine Marijuana (THC) Screen Positive (NEGATIVE) H Chest X-Ray Diagnostic Results Chest X-Ray Diagnostic Results : Chest X-Ray Ordered: Yes # of Views/Limited/Complete: 1 View Indication: Other - weakness EP Interpretation: Yes Interpretation: no consolidation, no effusion, no pneumothorax, no acute cardiopulmonary disease Impression: No acute disease Electronically Signed by: Hilaria Lau MD Last Vital Signs Date Time Temp Pulse Resp B/P (MAP) Pulse Ox O2 Delivery O2 Flow Rate FiO2 3/3/21 22:25 98.8 87 20 151/98 (115) 98 Room Air Disposition: ADMITTED INPATIENT Condition: Critical Physician Consult: Dr. Kirk MD at 140am Referrals: NOT CHOSEN IPA/,REFERRING (PCP) Additional Instructions: Please note that this report is being documented using [employer] technology. This can lead to erroneous entry secondary to incorrect interpretation by the dictating instrument. Hilaria Lau M.D. Sep 05, 2020 22:59
[2020-09-05] MEDS ORDERED: fentaNYL 100 mcg/2 mL IV ONE (23:00)
[2020-09-05 23:14] LABS: BASOPHILS % (AUTO) 0.6 % (0.0-2.0); EOSINOPHILS % (AUTO) 2.5 % (0.0-3.0); HEMATOCRIT 30.9 % (42.0-52.0); HEMOGLOBIN 9.7 G/DL (14.2-18.0); MEAN CORPUSCULAR VOLUME 82 FL (80-99); MONOCYTES % (AUTO) 6.3 % (1.0-10.0); NEUTROPHILS % (AUTO) 66.6 % (45.0-75.0); PLATELET COUNT 230 K/UL (150-450); RED BLOOD COUNT 3.77 M/UL (4.70-6.10); RED CELL DISTRIBUTION WIDTH 15.4 % (11.6-14.8); WHITE BLOOD COUNT 4.5 K/UL (4.8-10.8)
[2020-09-05 23:21] VITALS: BP 150/95
[2020-09-05 23:24] LABS: APPEARANCE,URINE CLEAR; BILIRUBIN, URINE NEGATIVE (NEGATIVE); COLOR,URINE PALE YELLOW; GLUCOSE, URINE (UA) NEGATIVE (NEGATIVE); KETONES,URINE NEGATIVE (NEGATIVE); LEUKOCYTE ESTERASE ,URINE NEGATIVE (NEGATIVE); NITRITE,URINE NEGATIVE (NEGATIVE); PH,URINE 6 (4.5-8.0); PROTEIN,URINE 2+ (NEGATIVE); UROBILINOGEN,URINE NORMAL MG/DL (0.0-1.0)
[2020-09-05 23:28] LABS: ANION GAP 5 mmol/L (5-15); BLOOD UREA NITROGEN 10 mg/dL (7-18); CALCIUM 8.6 MG/DL (8.5-10.1); CARBON DIOXIDE 30 MMOL/L (21-32); CHLORIDE 101 MMOL/L (98-107); CREATININE 1.1 MG/DL (0.55-1.30); POTASSIUM 3.3 MMOL/L (3.5-5.1); SODIUM 135 MMOL/L (136-145)
[2020-09-05 23:33] LABS: ALANINE AMINOTRANSFERASE 20 U/L (12-78); ALBUMIN 2.2 G/DL (3.4-5.0); ALBUMIN/GLOBULIN RATIO 0.3 (1.0-2.7); ALKALINE PHOSPHATASE 95 U/L (46-116); ASPARTATE AMINO TRANSFERASE 38 U/L (15-37); BILIRUBIN,TOTAL 0.2 MG/DL (0.2-1.0)
[2020-09-06] VITALS (9 sets, daily range): BP systolic 145–172; BP diastolic 88–119
--- NOTE | 2020-09-06 01:02 | Diagnostic Imaging Report ---
EXAM: CT Abdomen and Pelvis With Intravenous Contrast CLINICAL HISTORY: PAIN TECHNIQUE: Axial computed tomography images of the abdomen and pelvis with intravenous contrast. CTDI is 4.8 mGy and DLP is 251.5 mGy-cm. One or more of the following dose reduction techniques were used: automated exposure control, adjustment of the mA and/or kV according to patient size, use of iterative reconstruction technique. COMPARISON: CT abdomen pelvis 04/16/2020 FINDINGS: Lung bases: Decreased though persistent mild patchy and nodular opacities within the partially imaged lung bases, particularly within the medial right middle lobe and anterior basal left lower lobe. ABDOMEN: Liver: Grossly stable subcentimeter foci of decreased attenuation within the liver are too small to characterize. Gallbladder and bile ducts: Unremarkable. No calcified stones. No ductal dilation. Pancreas: Unremarkable. No mass. No ductal dilation. Spleen: Unremarkable. No splenomegaly. Adrenals: Unremarkable. No mass. Kidneys and ureters: Tiny low-density foci within both kidneys are too small to characterize. No follow-up imaging is necessary. No solid mass. No hydronephrosis. Stomach and bowel: There is circumferential wall thickening of the rectum. Fluid-filled loops of small bowel throughout the abdomen are visualized without significant distention, air-fluid levels or transition point to indicate a small bowel obstruction. Borderline circumferential wall thickening throughout the colon similar to the previous exam. PELVIS: Appendix: No findings to suggest acute appendicitis. Bladder: Unremarkable. No mass. Reproductive: Unremarkable as visualized. ABDOMEN and PELVIS: Intraperitoneal space: Unremarkable. No free air. No significant fluid collection. Bones/joints: Mild sclerosis of the left greater than right ilium at the SI joints may indicate changes of sacroiliitis. Soft tissues: Diffuse anasarca and mesenteric edema. Vasculature: Unremarkable. No abdominal aortic aneurysm. Lymph nodes: Unremarkable. No enlarged lymph nodes. Other findings: Course calcification in the right lower quadrant reidentified. IMPRESSION: Limited assessment of the GI tract due to lack of enteric contrast and paucity of intra-abdominal fat. 1. There is circumferential wall thickening of the rectum which is more conspicuous on today's exam which may indicate proctitis with an underlying lesion not excluded. Consider correlation with colonoscopy. 2. Borderline circumferential wall thickening throughout the colon similar to the previous exam and again raising the possibility of colitis which could be either infectious or inflammatory with ischemic considered less likely. 3. Mild anasarca and diffuse mesenteric edema are nonspecific but can be seen in the setting of third spacing or low protein state. 4. Mild sclerosis of the left greater than right ilium at the SI joints may indicate changes of sacroiliitis, which can be seen in association with inflammatory bowel disease. 5. Improving opacities within the lower lobes.
--- NOTE | 2020-09-06 02:00 | NUR ---
NURSE NOTES: Received telephone report from Chelle LANGFORD.
--- NOTE | 2020-09-06 02:08 | NUR ---
ED Nurse Note: patient being admitted for colitis, all vre/mrsa swabs sent to lab
[2020-09-06] MEDS ORDERED: Mylanta II UD 30ml ONE (02:19)
--- NOTE | 2020-09-06 02:45 | NUR ---
NURSE NOTES: Patient transported by wheelchair. Patient is awake, alert, and oriented x4. On room air, breathing is even and unlabored. No complains of pain or distress noted. IV right FA intact and patent with no bleeding noted. Belongings checked. Skin is intact. Oriented to hospital room. VS stable except BP (159/114). Bed low and locked. Call light within reach.
[2020-09-06] MEDS: metroNIDAZOLE 250mg tab ORAL SCH ×3 (05:37→22:51)
[2020-09-06] MEDS: D5 1/2NS w/KCl 20mEq 1,000 ML IV SCH ×2 (05:37→15:05)
--- NOTE | 2020-09-06 07:32 | NUR ---
NURSE NOTES: Report received from Osmel RN, rounds made. Patient resting in semi-fowlers position in bed. AOx4 calm. Respirations even/unlabored on RA. IVF D5 1/2 NS +20 KCL at 100 ml/hr to RFA, site asymptomatic. Denies SOB, pain, NV. Call light in reach, bed in lowest position, will continue to monitor.
--- NOTE | 2020-09-06 08:14 | NUR ---
NURSE HAND-OFF: Important Events on Shift: Admission, IVF Patient Status: Stable except BP 160/110 Diet: Clear liquid Pending Orders: [] Pending Results/Labs:[] Pending MD notification:[] Latest Vital Signs: Temperature 98.1 , Pulse 90 , B/P 164 /111 , Respiratory Rate 16 , O2 SAT 100 , Room Air, O2 Flow Rate . Vital Sign Comment: VS stable Latest [place] Fall Score: 20 Fall Risk: Low Risk Safety Measures: Call light Within Reach, Bed Alarm , Side Rails Side Rails x2, Bed position Low and Locked. Fall Precautions: Patient Fall Education Report given to Socorro LANGFORD.
[2020-09-06] MEDS: Ciprofloxacin 500mg tab ORAL SCH ×2 (09:15→20:08)
--- NOTE | 2020-09-06 10:15 | NUR ---
NURSE NOTES: Dr. Colette Bradley notified of BP 164/109 this AM, at bedside. No further orders received.
--- NOTE | 2020-09-06 10:29 | History & Physical ---
History and Physical History & Physicial HP dictated #[id number] Phill Bradley MD Sep 06, 2020 10:29
--- NOTE | 2020-09-06 11:29 | History and Physical Report ---
DATE OF ADMISSION: 09/06/2020 CHIEF COMPLAINT: Diarrhea. HISTORY OF PRESENT ILLNESS: This is a 35-year-old male with history of HIV which was diagnosed about 10 years ago. The patient came to the emergency room with diarrhea. He says that yesterday on the day of admission, he had about 5 bowel movements and the stool is sometimes watery and sometimes soft and there was also some blood in it. The patient denies abdominal pain. The patient has this diarrhea for weeks now and about a month ago he was admitted to [facility] with the same problem. PAST MEDICAL HISTORY: Basically as above. SOCIAL HISTORY: The patient smokes half a pack a day. No history of alcohol abuse. He lives with his boyfriend. ALLERGIES: No known drug allergies. REVIEW OF SYSTEMS: As above. PHYSICAL EXAMINATION: GENERAL: The patient is a 35-year-old male, in no acute distress. VITAL SIGNS: Blood pressure is 164/109, pulse 91, temperature 97.3, respiratory rate is 20. HEENT: Pale conjunctivae. Anicteric sclerae. NECK: Supple. LUNGS: Clear to auscultation. HEART: S1, S2 without murmurs or rubs. ABDOMEN: Soft, nontender. EXTREMITIES: No cyanosis or edema. LABORATORY FINDINGS: CBC shows a WBC of 4500, hematocrit 30.9, hemoglobin is 9.7, platelets 230,000. Chemistry panel shows a serum sodium 135, potassium 3.3, chloride 101, CO2 30, BUN is 10, creatinine 1.1, and calcium is 8.6, magnesium 2.0. UA shows 2+ protein. ASSESSMENT: This is a 35-year-old male who was admitted with diarrhea. The CT scan which was done shows circumferential wall thickening of the rectum which may indicate proctitis, also wall thickening throughout the colon with possible colitis so the patient was admitted with diagnosis of colitis, questionable infectious or other causes such as autoimmune. PLAN: The patient was started on IV fluids, antibiotics. The patient will be seen by Dr. Juan Antonio Bradley for Infectious Diseases. Labs will be followed and further adjustment will be made in the patient's regimen. Phill Bradley M.D. DR: Chelsi JOB#: [id number] CC:
--- NOTE | 2020-09-06 11:59 | NUR ---
BOOKSTORE MANAGER NOTE SW met w/ pt and completed the psychosocial assessment. Pt presents as A&O 4x. Pt has been homeless for 2 years, mostly staying near [facility]. Pt is single, never and has no children. Pt receives GR and food stamp. Pt reports he has some income available for this month. PT has hx of employment at the [employer] in [place] and [facility]. Pt is ambulatory w/o DME and independent w/ ADLs and IADLs. Pt reports THC and tobacco use and denies ETOH abuse and other substance abuse. UDS positive for PCP, THC and Amphetamine. Pt declined counseling/tx intervention on substance abuse. SW encouraged pt to consider the placement assistance using his GR and food stamp but pt declined. SW explained negative ramification of unlicensed facilities/self-directing. Pt verbalized understanding. SW provided the community resource packet. Pt has appropriate clothing. Emergency contact is his brother, Abhay Lyles [phone] Pt will dc own resource to preferred location via public transportation on DC date. SW to F/U as needed. Addendum: 09/06/20 at 1219 by JAMMIE MENDOZA Pt denies hx of mental illness and declined the mental health referral.
--- NOTE | 2020-09-06 12:59 | Consultation ---
DATE OF CONSULTATION: 09/06/2020 INFECTIOUS DISEASES CONSULTATION CONSULTING PHYSICIAN: Juan Antonio Bradley MD. PRIMARY ATTENDING PHYSICIAN: Phill Bradley MD. REASON FOR CONSULTATION: HIV, colitis, and proctitis. HISTORY OF PRESENT ILLNESS: This is a 35-year-old male admitted today complaining of diarrhea for couple of weeks. He has history of hospitalization in [facility] with same problems, has HIV but there was not any HIV treatment. Denies fever or systemic symptoms. PAST MEDICAL HISTORY: HIV since 2015, hypertension, asthma. ALLERGIES: No known drug allergies. MEDICATIONS: Amlodipine, Cipro, Flagyl, Tylenol. SOCIAL HISTORY: Smoking half pack cigarettes, smoking Marijuana Denies other drug abuse. Denies drinking. Currently is homeless. REVIEW OF SYSTEMS: As per history of present illness. Denies any fever, coughing, shortness of breath. No dysuria. PHYSICAL EXAMINATION: VITAL SIGNS: Temperature 97.8, pulse 91, blood pressure 164/109. GENERAL APPEARANCE: No acute distress. HEAD AND NECK: No oral lesion. Has upper teeth loss. HEART: Normal rate. LUNGS: Clear. ABDOMEN: Soft. EXTREMITIES: No edema. NEUROLOGIC: Awake, alert, responsive. LABORATORY AND DIAGNOSTIC DATA: WBC 4.5, hemoglobin 9.7, hematocrit 30.9, and platelets 230. Sodium 135, potassium 3.3, chloride 101, bicarb 30. Total protein 10.6. Albumin is 2.2. Urine toxicology is positive for amphetamine, PCP, and marijuana. CT scan of the abdomen and pelvis showed possibility of proctitis and colitis. IMPRESSION: Colitis and proctitis more likely infectious in etiology, so far C. difficile test is negative, has HIV unknown stage, noncompliant with medication, has mild hypokalemia, has polysubstance abuse including marijuana, amphetamine, PCP, has nicotine dependence, has hypertension and homeless. RECOMMENDATION: Continue with Cipro and Flagyl. We will check CD4 and HIV viral load. We will check stool culture. At the end of my exam, I thank Dr. Phill Bradley, for involving me in the care of this patient. Juan Antonio Bradley M.D. DR: Dhaval JOB#: [id number] CC: KALYAN
--- NOTE | 2020-09-06 13:59 | Diagnostic Imaging Report ---
Indication: Chest pain Technique: One view of the chest Comparison: 04/16/2020 Findings: The lungs and pleural spaces are clear. The heart size is normal. No significant change Impression: Negative
--- NOTE | 2020-09-06 14:04 | NUR ---
NURSE NOTES: Stool culture obtained at this time, sent to lab with Cherie SOARES.
--- NOTE | 2020-09-06 18:53 | NUR ---
NURSE NOTES: Dr. Colette Bradley notified that patient continues to have elevated BP, last BP at 1830 was 169/119 HR 99, orders to give additional dose of Norvasc 5 mg PO today and increase Norvasc 5 mg PO BID starting tomorrow. Will follow as ordered. Will endorse to next shift.
--- NOTE | 2020-09-06 19:26 | NUR ---
NURSE HAND-OFF: Important Events on Shift:Elevated BP (medicated with additional Norvasc 5 mg at 1905 as ordered), Stool cx obtained/sent to lab Patient Status: stable Diet: Full Liquids Pending Orders: none Pending Results/Labs:Tcell, HIV Pending MD notification:none Latest Vital Signs: Temperature 97.4 , Pulse 99 , B/P 169 /119 , Respiratory Rate 19 , O2 SAT 98 , Room Air, O2 Flow Rate . Vital Sign Comment: MONITOR BP Latest [place] Fall Score: 20 Fall Risk: Low Risk Safety Measures: Call light Within Reach, Bed Alarm , Side Rails Side Rails x2, Bed position Low and Locked. Fall Precautions: Yellow Socks Patient Fall Education Report given to Liset LANGFORD.
--- NOTE | 2020-09-06 19:42 | NUR ---
NURSE NOTES: RECEIVED PATIENT LYING IN BED, AWAKE, ALERT/ORIENTED X4, IV INTACT TO RIGHT FOREARM/GAUGE 20, TOLERATING IV FLUIDS, NO SWELLING/COMPLAINT OF PAIN TO SITE VERBALIZED. NO SIGNS AND SYMPTOMS OF ACUTE CARDIO RESPIRATORY DISTRESS/SHORTNESS OF BREATH, DENIES CHEST PAIN, NO PERIPHERAL EDEMA NOTED. MRSA/VRE SWABS PENDING. SOCIAL SERVICE ACTIVELY ON CASE SECONDARY TO HOMELESS STATUS. ADVISED PATIENT TO SAVE NEXT STOOL, DO NOT FLUSH, VERBALIZED UNDERSTANDING. SIDE RAILS UP X2 FOR MOBILITY, BED IN LOWEST POSITION FOR SAFETY, ENCOURAGED PATIENT TO UTILIZE CALL LIGHT FOR ASSISTANCE.
--- NOTE | 2020-09-06 21:04 | NUR ---
NURSE NOTES: TELEPHONE CALL PLACED TO DR. WESTBROOK REGARDING ELEVATED BLOOD PRESSURE 164/112, ASYMPTOMATIC, MEDICATED WITH NORVASC 5MG AT 1905, WILL AWAIT MD RETURN CALL, CHARGE NURSE AWARE-
--- NOTE | 2020-09-06 21:07 | NUR ---
NURSE NOTES: MD RETURNED CALL, GAVE ORDER TO NOT CALL REGARDING BLOOD PRESSURE IF SBP IS NOT GREATER THAN 180MM/HG, CHARGE NURSE MADE AWARE-
[2020-09-07] VITALS: BP 138/95
[2020-09-07] MEDS: D5 1/2NS w/KCl 20mEq 1,000 ML IV SCH ×2 (01:00→11:00)
[2020-09-07 04:00] VITALS: BP 160/94
[2020-09-07] MEDS: metroNIDAZOLE 250mg tab ORAL SCH ×2 (05:27→13:56)
[2020-09-07 06:28] LABS: MEAN CORPUSCULAR VOLUME 83 FL (80-99); PLATELET COUNT 211 K/UL (150-450); RED BLOOD COUNT 3.62 M/UL (4.70-6.10); RED CELL DISTRIBUTION WIDTH 15.6 % (11.6-14.8); WHITE BLOOD COUNT 2.4 K/UL (4.8-10.8)
[2020-09-07 06:51] LABS: ALANINE AMINOTRANSFERASE 22 U/L (12-78); ALBUMIN/GLOBULIN RATIO 0.3 (1.0-2.7); ALKALINE PHOSPHATASE 88 U/L (46-116); ANION GAP 8 mmol/L (5-15); ASPARTATE AMINO TRANSFERASE 33 U/L (15-37); BILIRUBIN,TOTAL < 0.1 MG/DL (0.2-1.0); BLOOD UREA NITROGEN 6 mg/dL (7-18); CALCIUM 8.3 MG/DL (8.5-10.1); CARBON DIOXIDE 27 MMOL/L (21-32); CHLORIDE 105 MMOL/L (98-107); POTASSIUM 3.1 MMOL/L (3.5-5.1); SODIUM 140 MMOL/L (136-145)
--- NOTE | 2020-09-07 07:15 | NUR ---
NURSE NOTES: Report received from Liset LANGFORD, rounds made. Patient resting in semi-fowlers position in bed. AOx4 calm. Respirations even/unlabored on RA. IVF D5 1/2 NS +20 KCL at 100 ml/hr to RFA, site asymptomatic. Denies SOB, pain, NV. Will continue to monitor BP and BMs. Call light in reach, bed in lowest position.
[2020-09-07 08:00] VITALS: BP 163/104
[2020-09-07] MEDS: Ciprofloxacin 500mg tab ORAL SCH (08:17)
--- NOTE | 2020-09-07 11:21 | Infectious Diseases Prog Note ---
Assessment/Plan Assessment/Plan IMPRESSION: Colitis and proctitis more likely infectious in etiology, so HIV unknown stage, hypokalemia, has polysubstance abuse including: -marijuana, amphetamine, PCP, Nicotine dependence, Hypertension Homeless. RECOMMENDATION: Continue with Cipro and Flagyl. We will f/u CD4 and HIV viral load. We will f/u stool culture. Subjective ROS Limited/Unobtainable: No Constitutional: Reports: no symptoms Respiratory: Reports: no symptoms Gastrointestinal/Abdominal: Reports: no symptoms Genitourinary: Reports: no symptoms Allergies: Coded Allergies: No Known Allergies (Unverified , 04/16/20) Objective Last 24 Hour Vital Signs Date Time Temp Pulse Resp B/P (MAP) Pulse Ox O2 Delivery O2 Flow Rate FiO2 09/07/20 08:21 Room Air 09/07/20 08:17 82 163/104 09/07/20 08:00 97.8 82 20 163/104 (123) 97 09/07/20 04:00 97.6 77 16 160/94 (116) 97 09/07/20 00:00 97.6 84 16 138/95 (109) 98 09/06/20 21:15 Room Air 09/06/20 20:00 97.7 100 16 169/112 (131) 98 09/06/20 19:05 99 169/119 09/06/20 18:30 99 169/119 (136) 09/06/20 16:00 97.4 91 19 165/110 (128) 98 09/06/20 13:45 93 145/108 (120) 09/06/20 12:00 97.9 91 20 172/115 (134) 99 09/06/20 11:51 91 172/115 Height (Feet): 5 Height (Inches): 11.00 Weight (Pounds): 175 General Appearance: no acute distress HEENT: mucous membranes moist Respiratory/Chest: lungs clear Cardiovascular: normal rate Abdomen: soft, non tender Extremities: no edema Neurologic/Psychiatric: alert, oriented x 3, responsive Microbiology Date/Time Source Procedure Growth Status 09/05/20 22:57 Stool Clostridium difficile Toxin Assay - Final Complete Laboratory Tests Test 09/06/20 12:10 09/07/20 05:15 White Blood Count Pending 2.4 K/UL (4.8-10.8) L Lymphocytes Pending Percent CD3 Cells Pending Absolute CD3 Count Pending Percent CD4 Cells Pending Absolute CD4 Count Pending T-Lymphocyte CD4/CD8 Ratio Pending Percent CD8 Cells Pending Absolute CD8 Count Pending HIV-1 RNA (PCR) log10 Value Pending HIV-1 RNA Ultraquantitative (PCR) Pending Red Blood Count 3.62 M/UL (4.70-6.10) L Hemoglobin 9.0 G/DL (14.2-18.0) L Hematocrit 30.0 % (42.0-52.0) L Mean Corpuscular Volume 83 FL (80-99) Mean Corpuscular Hemoglobin 24.9 PG (27.0-31.0) L Mean Corpuscular Hemoglobin Concent 30.1 G/DL (32.0-36.0) L Red Cell Distribution Width 15.6 % (11.6-14.8) H Platelet Count 211 K/UL (150-450) Mean Platelet Volume 6.7 FL (6.5-10.1) Neutrophils (%) (Auto) % (45.0-75.0) Lymphocytes (%) (Auto) % (20.0-45.0) Monocytes (%) (Auto) % (1.0-10.0) Eosinophils (%) (Auto) % (0.0-3.0) Basophils (%) (Auto) % (0.0-2.0) Differential Total Cells Counted 100 Neutrophils % (Manual) 56 % (45-75) Lymphocytes % (Manual) 35 % (20-45) Monocytes % (Manual) 6 % (1-10) Eosinophils % (Manual) 3 % (0-3) Basophils % (Manual) 0 % (0-2) Band Neutrophils 0 % (0-8) Platelet Estimate Adequate Platelet Morphology Normal Anisocytosis 1+ Sodium Level 140 MMOL/L (136-145) Potassium Level 3.1 MMOL/L (3.5-5.1) L Chloride Level 105 MMOL/L (98-107) Carbon Dioxide Level 27 MMOL/L (21-32) Anion Gap 8 mmol/L (5-15) Blood Urea Nitrogen 6 mg/dL (7-18) L Creatinine 1.0 MG/DL (0.55-1.30) Estimat Glomerular Filtration Rate > 60 mL/min (>60) Glucose Level 85 MG/DL (74-106) Calcium Level 8.3 MG/DL (8.5-10.1) L Total Bilirubin < 0.1 MG/DL (0.2-1.0) L Aspartate Amino Transf (AST/SGOT) 33 U/L (15-37) Alanine Aminotransferase (ALT/SGPT) 22 U/L (12-78) Alkaline Phosphatase 88 U/L (46-116) Total Protein 9.5 G/DL (6.4-8.2) H Albumin 2.0 G/DL (3.4-5.0) L Globulin 7.5 g/dL Albumin/Globulin Ratio 0.3 (1.0-2.7) L Current Medications Medications (Trade) Dose Ordered Sig/Renetta Route PRN Reason Start Time Stop Time Status Last Admin Dose Admin Acetaminophen (Tylenol) 650 mg Q4H PRN ORAL Mild Pain (Pain Scale 1-3) 09/06/20 03:15 10/06/20 03:14 Amlodipine Besylate (Norvasc) 5 mg TWICE A DAY ORAL 09/07/20 09:00 10/06/20 10:44 09/07/20 08:17 Ciprofloxacin (Cipro 500mg tab) 500 mg Q12H ORAL 09/06/20 09:00 09/13/20 08:59 09/07/20 08:17 Dextrose (Dextrose 50%) 25 ml Q30M PRN IV Hypoglycemia 09/06/20 03:15 12/05/20 03:14 Dextrose (Dextrose 50%) 50 ml Q30M PRN IV Hypoglycemia 09/06/20 03:15 12/05/20 03:14 Dextrose/ Electrolytes 1,000 ml @ 100 mls/hr Q10H IV 09/06/20 05:00 10/06/20 04:59 09/07/20 01:00 Metronidazole (Flagyl) 500 mg Q8HR ORAL 09/06/20 06:00 09/13/20 05:59 09/07/20 05:27 Juan Antonio Bradley MD Sep 07, 2020 11:21
[2020-09-07 12:00] VITALS: BP 156/104
[2020-09-07 16:00] VITALS: BP 161/114
--- NOTE | 2020-09-07 16:25 | NUR ---
NURSE NOTES: Discharge instructions reviewed with patient, verbalized understanding. Instructed patient to call Dr. Phill Bradley, office number provided, to schedule follow up appointment. IV discontinued, no active bleeding. ID bracelet removed. All belongings and discharge instructions given to patient. [facility] Randal [facility]AFOX, in stable condition. Discharged at 1625.
--- NOTE | 2020-09-10 15:09 | NUR ---
INSURANCE [employer]INICALS/ DC INSTRUCTIONS FAXED TO [employer] - opt 3 Fax Clinicals to: [phone] [place] Fax Clinicals to: [phone]
--- NOTE | 2020-09-10 16:27 | Discharge Summary ---
Discharge Summary Discharge Summary _ Date of admission: 09/06/2020 Date of discharge: 09/07/[address] Bradley, A History of Present Illness and Brief Hospital Course Mr. Billingsley is a 35-year-old male with past medical history of HIV who presented to the ER for evaluation of diarrhea x1 month. Abdomen/pelvis CT was concerning for colitis and proctitis. Patient was started on IV Cipro and Flagyl. Patient was mildly hypokalemic which was replaced with oral potassium chloride. Patient was anemic but did not require blood transfusion. C. difficile test was negative. Patient reported noncompliance with HIV medications. Serology and immunology test results did not come back until discharge. Toxicology screening was positive for phencyclidine, amphetamines, and marijuana. Patient was medically stable for discharge and was discharged home on 09/07/2020. Patient was instructed to call Dr. Phill Sibley to schedule a follow-up appointment. Consultants: Infectious disease Diallo Odonnell Discharge Condition Stable Discharge Activity As tolerated Discharge Diet Regular Final diagnoses Polysubstance abuse; marijuana, amphetamine, PCP Colitis Proctitis HIV, unknown stage Hypokalemia Nicotine dependence Hypertension Homelessness I have been assigned to dictate discharge summary for this account. I was not involved in the patient's management Wes Gallo Sep 10, 2020 16:27
== END 2020-09-07 16:28 | disposition home or self-care (01) | DRG 254 ==
LOC: EMR 22:31 → 4E 09-06 01:30 → EDBEDREQ 09-06 01:37
DX: K62.89 Other specified diseases of anus and rectum (principal); K52.9 Noninfective gastroenteritis and colitis, unspecified; E87.6 Hypokalemia; D64.9 Anemia, unspecified; F17.200 Nicotine dependence, unspecified, uncomplicated; Z91.14 Patient's other noncompliance with medication regimen; I10 Essential (primary) hypertension; Z59.0 Homelessness; F16.10 Hallucinogen abuse, uncomplicated; F12.10 Cannabis abuse, uncomplicated; F15.10 Other stimulant abuse, uncomplicated
CPT/HCPCS: 36415; 71045; 74177; 80053; 80307; 81003; 83690; 83735; 85007; 85025; 85610; 85730; 86360; 86850; 86900; 86901; 87045; 87081; 87181; 87324; 87536; 96361; 96365; 96367; 96375; 99285; J7030; J8499